=== PATIENT | female | born 1945 | race African-American/Black ===

== ENCOUNTER 2022-08-23 15:38 | Inpatient (IN) | payer MEDICARE ==
[~2022-08-23] VITALS: Ht 170.2 cm; Wt 55.5 kg
[2022-08-23] MEDS ORDERED: FAMOTIDINE 20 MG/2 ML VIAL IV STA (17:53)
[2022-08-23 18:08] LABS: BASOPHILS # (AUTO) 0.1 (0.0-0.1); BASOPHILS % 1.3 % (0.0-1.0); EOSINOPHILS # (AUTO) 0.1 (0.0-0.4); EOSINOPHILS % 1.3 % (0.0-6.0); HEMATOCRIT 30.6 % (34.2-44.1); HEMOGLOBIN 9.3 g/dL (12.0-16.0); LYMPHOCYTES # (AUTO) 1.2 (1.0-3.2); LYMPHOCYTES % 21.1 % (18.0-39.1); MEAN CORPUSCULAR HEMOGLOBIN 24.2 pg (28-32); MEAN CORPUSCULAR HGB CONC 30.4 g/dL (31-35); MEAN CORPUSCULAR VOLUME 79.7 fL (81-99); MONOCYTES # (AUTO) 0.4 (0.2-0.8); MONOCYTES % 6.3 % (4.4-11.3); NEUTROPHILS # (AUTO) 3.9 (2.1-6.9); NEUTROPHILS % 69.5 % (38.7-80.0); PLATELET COUNT 414 x10e3/uL (140-360); RED BLOOD COUNT 3.84 x10e6/uL (3.6-5.1); RED CELL DISTRIBUTION WIDTH 15.4 % (11.7-14.4)
[2022-08-23 18:15] LABS: ALBUMIN 3.7 g/dL (3.5-5.0); ALBUMIN/GLOBULIN RATIO 0.9 (0.8-2.0); ANION GAP 16.7 mmol/L (8-16); CALCIUM 9.4 mg/dL (8.4-10.2); CREATININE, SERUM 1.38 mg/dL (0.57-1.11); POTASSIUM 4.7 mmol/L (3.5-5.1)
[2022-08-23 18:22] LABS: CREATINE KINASE MB 2.7 ng/mL (0-5.0)
[2022-08-23] MEDS ORDERED: Morphine 2mg Syringe 2 MG/ML SYR IV PRN (19:00)
[2022-08-23] MEDS ORDERED: SODIUM CHLORIDE FLUSH 10 ML SYR INJ PRN (19:00)
[2022-08-23] MEDS ORDERED: ONDANSETRON HCL INJ 2MG/ML 2ML 2 MG/ML VIAL IV PRN (19:00)
[2022-08-23] MEDS ORDERED: ASPIRIN 81 MG CHEW TAB PO ONE (19:00)
[2022-08-23 19:01] LABS: CLARITY,URINE SL CLOUDY (CLEAR); COLOR,URINE AMBER (YELLOW); KETONES,URINE 1+ (NEGATIVE); LEUKOCYTE ESTERASE ,URINE NEGATIVE (NEGATIVE); NITRITE,URINE NEGATIVE (NEGATIVE); PROTEIN,URINE DIPSTICK 2+ (NEGATIVE); URINE UROBILINOGEN 0.2 mg/dL (0.2 - 1)
[2022-08-23 20:25] VITALS: PULSE 75; RESP 18; O2SAT 97
[2022-08-23 20:43] LABS: CREATINE KINASE MB 2.1 ng/mL (0-5.0)
[2022-08-23 23:00] VITALS: BP 158/57; PULSE 66; RESP 16; TEMP 97.3; O2SAT 100
[2022-08-24] VITALS (9 sets, daily range): BP systolic 118–160; BP diastolic 57–69; PULSE 60–113; RESP 16–20; TEMP 97.3–99; O2SAT 97–100
[2022-08-24] MEDS ORDERED: LOSARTAN POTAS100 MG PO (01:15)
[2022-08-24] MEDS ORDERED: CILOSTAZOL100 MG PO (01:15)
[2022-08-24] MEDS ORDERED: HYDRALAZINE HCL25 MG PO (01:15)
[2022-08-24] MEDS ORDERED: ISOSORBIDE MONO60 MG PO (01:15)
[2022-08-24] MEDS ORDERED: ATORVASTATIN CA40 MG PO (01:15)
[2022-08-24] MEDS ORDERED: CLOPIDOGREL75 MG PO (01:15)
[2022-08-24] MEDS ORDERED: GABAPENTIN300 MG PO (01:15)
[2022-08-24 05:54] LABS: BASOPHILS # (AUTO) 0.1 (0.0-0.1); BASOPHILS % 1.7 % (0.0-1.0); EOSINOPHILS # (AUTO) 0.1 (0.0-0.4); EOSINOPHILS % 2.5 % (0.0-6.0); HEMATOCRIT 28.7 % (34.2-44.1); HEMOGLOBIN 8.4 g/dL (12.0-16.0); LYMPHOCYTES # (AUTO) 1.7 (1.0-3.2); LYMPHOCYTES % 35.6 % (18.0-39.1); MEAN CORPUSCULAR HEMOGLOBIN 23.9 pg (28-32); MEAN CORPUSCULAR HGB CONC 29.3 g/dL (31-35); MEAN CORPUSCULAR VOLUME 81.5 fL (81-99); MONOCYTES # (AUTO) 0.4 (0.2-0.8); MONOCYTES % 8.3 % (4.4-11.3); NEUTROPHILS # (AUTO) 2.5 (2.1-6.9); NEUTROPHILS % 51.7 % (38.7-80.0); PLATELET COUNT 415 x10e3/uL (140-360); RED BLOOD COUNT 3.52 x10e6/uL (3.6-5.1); RED CELL DISTRIBUTION WIDTH 15.3 % (11.7-14.4)
[2022-08-24 06:18] LABS: ALBUMIN 3.4 g/dL (3.5-5.0); ANION GAP 12.1 mmol/L (8-16); CALCIUM 9.2 mg/dL (8.4-10.2); CREATININE, SERUM 1.17 mg/dL (0.57-1.11); POTASSIUM 4.1 mmol/L (3.5-5.1)
[2022-08-24] MEDS ORDERED: DEXTROSE 50% SYRINGE 50 ML IV PRN (06:45)
[2022-08-24 06:48] LABS: CREATINE KINASE MB 1.7 ng/mL (0-5.0)
[2022-08-24 07:05] LABS: CHOL/HDL RATIO 4.9 (3.0-3.6)
[2022-08-24] MEDS: INSULIN REGULAR, HUMAN 100 UNIT/1 ML SQ SCH ×4 (07:30→20:43)
[2022-08-24 09:16] LABS: CREATINE KINASE MB 1.6 ng/mL (0-5.0)
[2022-08-24] MEDS: ISOSORBIDE MONONITRATE 30 MG TAB CR PO SCH (09:56)
[2022-08-24] MEDS: FAMOTIDINE 20 MG TAB PO SCH ×2 (09:56→17:48)
[2022-08-24] MEDS: CLOPIDOGREL BISULFATE 75 MG TAB PO SCH (09:56)
[2022-08-24] MEDS: GABAPENTIN 300 MG CAP PO SCH ×2 (09:56→20:38)
[2022-08-24] MEDS: ASPIRIN 81 MG ENTERIC COATED PO SCH (09:57)
[2022-08-24] MEDS: HYDRALAZINE HCL 25 MG TAB PO SCH ×3 (09:57→20:39)
[2022-08-24] MEDS: LOSARTAN POTASSIUM 100 MG TAB PO SCH (09:57)
[2022-08-24 14:25] LABS: CREATINE KINASE MB 1.3 ng/mL (0-5.0)
[2022-08-24] MEDS: ENOXAPARIN SOD INJ 40 MG/0.4 ML SYR SC SCH (17:48)
[2022-08-25] VITALS (19 sets, daily range): BP systolic 117–179; BP diastolic 45–73; PULSE 54–77; RESP 13–19; TEMP 97.6–98.8; O2SAT 94–100
[2022-08-25] MEDS: INSULIN REGULAR, HUMAN 100 UNIT/1 ML SQ SCH ×4 (07:30→21:10)
[2022-08-25] MEDS: GABAPENTIN 300 MG CAP PO SCH ×2 (08:53→21:06)
[2022-08-25] MEDS: FAMOTIDINE 20 MG TAB PO SCH ×2 (08:53→16:30)
[2022-08-25] MEDS: HYDRALAZINE HCL 25 MG TAB PO SCH ×3 (08:54→21:06)
[2022-08-25] MEDS: ASPIRIN 81 MG ENTERIC COATED PO SCH (08:54)
[2022-08-25] MEDS: CLOPIDOGREL BISULFATE 75 MG TAB PO SCH (08:54)
[2022-08-25] MEDS: METOPROLOL TARTRATE 25 MG TAB PO SCH ×2 (08:57→17:00)
[2022-08-25] MEDS: ISOSORBIDE MONONITRATE 30 MG TAB CR PO SCH (08:58)
[2022-08-25] MEDS: LOSARTAN POTASSIUM 100 MG TAB PO SCH (08:58)
[2022-08-25 09:52] LABS: ANION GAP 10.5 mmol/L (8-16); CALCIUM 9.2 mg/dL (8.4-10.2); CREATININE, SERUM 1.07 mg/dL (0.57-1.11); POTASSIUM 4.5 mmol/L (3.5-5.1)
[2022-08-25] MEDS ORDERED: ONDANSETRON HCL 4 MG ORAL DISINTEGRATING TAB PO PRN (12:00)
[2022-08-25] MEDS ORDERED: LIDOCAINE HCL 2% LOCAL 20 ML VIAL ONE (14:42)
[2022-08-25] MEDS ORDERED: IOPAMIDOL 370 MG/ML 100 ML INFUS..BTL INJ ONE (14:42)
[2022-08-25] MEDS ORDERED: HEPARIN SOD (PORCINE) 1000 UNIT/ML 30ML ONE (14:42)
[2022-08-25] MEDS ORDERED: SODIUM CHLORIDE 0.9% 1000ML 1,000 ML ONE (14:42)
[2022-08-25] MEDS ORDERED: HEPARIN SOD/SOD CHLORIDE 2,000 ML ONE (14:42)
[2022-08-25] MEDS ORDERED: NITROGLYCERIN/D5W 200 MCG/ML 250 ML ONE (14:43)
[2022-08-25] MEDS ORDERED: FENTANYL CITRATE/PF 100MCG/2 ML INJ ONE (15:25)
[2022-08-25] MEDS ORDERED: MIDAZOLAM HCL 2 MG/2 ML VIAL ONE (15:25)
[2022-08-25] MEDS: ENOXAPARIN SOD INJ 40 MG/0.4 ML SYR SC SCH (17:00)
[2022-08-25] MEDS ORDERED: ATORVASTATIN 40 MG TAB PO SCH (21:00)
[2022-08-26 04:56] VITALS: BP 188/69; PULSE 64; RESP 18; TEMP 98.7; O2SAT 99
[2022-08-26] MEDS: INSULIN REGULAR, HUMAN 100 UNIT/1 ML SQ SCH (07:30)
[2022-08-26] MEDS ORDERED: ISOSORBIDE MONONITRATE 30 MG TAB CR PO SCH (09:00)
[2022-08-26 12:27] LABS: ANION GAP 14.7 mmol/L (8-16); CALCIUM 9.7 mg/dL (8.4-10.2); CREATININE, SERUM 1.13 mg/dL (0.57-1.11); POTASSIUM 4.7 mmol/L (3.5-5.1)
[2022-08-26 12:46] VITALS: BP 165/76; PULSE 70; RESP 16; TEMP 98.3; O2SAT 100
[2022-08-26] MEDS: ASPIRIN 81 MG ENTERIC COATED PO SCH (12:55)
[2022-08-26] MEDS: CLOPIDOGREL BISULFATE 75 MG TAB PO SCH (12:56)
[2022-08-26] MEDS: GABAPENTIN 300 MG CAP PO SCH (12:56)
[2022-08-26] MEDS: FAMOTIDINE 20 MG TAB PO SCH (12:56)
[2022-08-26] MEDS: HYDRALAZINE HCL 25 MG TAB PO SCH (12:56)
[2022-08-26] MEDS: METOPROLOL TARTRATE 25 MG TAB PO SCH (12:57)
[2022-08-26] MEDS: LOSARTAN POTASSIUM 100 MG TAB PO SCH (12:57)
[2022-08-26] MEDS ORDERED: ATORVASTATIN CA40 MG PO (16:06)
[2022-08-26] MEDS ORDERED: LOPRESSOR25 MG PO (16:06)
[2022-08-26] MEDS ORDERED: ASPIRIN EC81 MG PO (16:06)
[2022-08-26] MEDS ORDERED: ISOSORBIDE MONO60 MG PO (16:06)
== END 2022-08-26 16:49 | disposition home or self-care (01) | DRG 253 ==
LOC: ER 16:48 → ERHOLD 18:54 → MED/SURG2 23:04 → OBSVTOIN 08-25 10:52 → MED/SURG2 08-25 21:00
PROVIDERS: ADMIT Internal Medicine; ATTEND Internal Medicine
PROC: 4A023N7 Measurement of Cardiac Sampling and Pressure, Left Heart, Percutaneous Approach (ICD-10-PCS; principal; 2022-08-25)
PROC: 047C3ZZ Dilation of Right Common Iliac Artery, Percutaneous Approach (ICD-10-PCS; 2022-08-25)
PROC: B2131ZZ Fluoroscopy of Multiple Coronary Artery Bypass Grafts using Low Osmolar Contrast (ICD-10-PCS; 2022-08-25)
DX: I21.4 Non-ST elevation (NSTEMI) myocardial infarction (principal); E87.20 Acidosis, unspecified; I13.0 Hypertensive heart and chronic kidney disease with heart failure and stage 1 through stage 4 chronic kidney disease, or unspecified chronic kidney disease; I25.719 Atherosclerosis of autologous vein coronary artery bypass graft(s) with unspecified angina pectoris; I50.32 Chronic diastolic (congestive) heart failure; N17.9 Acute kidney failure, unspecified; I25.119 Atherosclerotic heart disease of native coronary artery with unspecified angina pectoris; E11.22 Type 2 diabetes mellitus with diabetic chronic kidney disease; N18.30 Chronic kidney disease, stage 3 unspecified; E78.5 Hyperlipidemia, unspecified; M19.90 Unspecified osteoarthritis, unspecified site; E11.41 Type 2 diabetes mellitus with diabetic mononeuropathy; E11.51 Type 2 diabetes mellitus with diabetic peripheral angiopathy without gangrene; Z20.822 Contact with and (suspected) exposure to COVID-19; Z59.6 Low income; Z86.73 Personal history of transient ischemic attack (TIA), and cerebral infarction without residual deficits; Z95.1 Presence of aortocoronary bypass graft; Z87.891 Personal history of nicotine dependence
CPT/HCPCS: 36415; 37220; 71045; 75625; 76937; 80048; 80053; 80061; 81001; 82550; 82553; 82948; 83036; 83690; 84484; 85025; 93005; 93306; 93459; 94799; 99152; 99153; 99284; C1725; C1769; C1887; G0378; J1644; J1650; J2001; J2250; J7030; Q9967